=== PATIENT | male | born 1990 | race African-American/Black ===

== ENCOUNTER 2020-06-18 21:14 | Emergency (ER) | payer SELFPAY ==
[2020-06-18] MEDS ORDERED: Ketorolac Tromethamine 30 MG/ML VIAL ONE (22:00)
== END 2020-06-18 22:22 | disposition home or self-care (01) ==
LOC: CSHERS 21:14
DX: M25.512 Pain in left shoulder (principal); J45.909 Unspecified asthma, uncomplicated; F17.210 Nicotine dependence, cigarettes, uncomplicated; Z79.51 Long term (current) use of inhaled steroids; Z79.899 Other long term (current) drug therapy
CPT/HCPCS: 96372; 99283; J1885

== ENCOUNTER 2022-02-07 13:39 | Emergency (ER) | payer OTHER, SELFPAY | END 2022-02-07 15:00 | disposition home or self-care (01) | LOC: CSHERS 13:39 | DX: H10.9 Unspecified conjunctivitis (principal); F17.210 Nicotine dependence, cigarettes, uncomplicated | CPT/HCPCS: 99283 ==

== ENCOUNTER 2022-11-19 20:46 | Emergency (ER) | payer OTHER ==
[2022-11-20] MEDS ORDERED: Lidocaine 1% (PF) 30 ML VIAL ONE (13:44)
== END 2022-11-19 23:00 | disposition left against medical advice (07) ==
LOC: CSHERS 20:46
DX: Z53.21 Procedure and treatment not carried out due to patient leaving prior to being seen by health care provider (principal)

== ENCOUNTER 2022-11-20 11:26 | Emergency (ER) | payer OTHER, SELFPAY | END 2022-11-20 14:32 | disposition home or self-care (01) | LOC: CSHERS 11:26 | DX: L02.416 Cutaneous abscess of left lower limb (principal); F17.210 Nicotine dependence, cigarettes, uncomplicated | CPT/HCPCS: 64450; J2001 ==

== ENCOUNTER 2022-11-23 06:44 | Emergency (ER) | payer SELFPAY | END 2022-11-23 07:30 | disposition home or self-care (01) | LOC: CSHERS 06:44 | DX: S31.501D Unspecified open wound of unspecified external genital organs, male, subsequent encounter (principal) | CPT/HCPCS: 99282 ==

== ENCOUNTER 2022-12-23 18:02 | Emergency (ER) | payer SELFPAY ==
[2022-12-23 19:18] LABS: SARS-CoV-2 NAA Rapid Test Not Detected (NotDetected)
== END 2022-12-23 18:41 | disposition home or self-care (01) ==
LOC: CSHERS 18:02
DX: B34.9 Viral infection, unspecified (principal); J45.909 Unspecified asthma, uncomplicated; F17.210 Nicotine dependence, cigarettes, uncomplicated; Z20.822 Contact with and (suspected) exposure to COVID-19
CPT/HCPCS: 99283